=== PATIENT | female | born 1965 | race Two or more races ===

== ENCOUNTER → 2017-01-27 | Outpatient (CLI) | payer MEDICAID ==
[~2017-01-27] MED LIST: LEVO750T26 PO; METR500T8 PO; ONDA4TAB10 PO; OXYC5TAB3 PO
== END | disposition home or self-care (01) ==
LOC: RAD 15:59
PROVIDERS: ATTEND Nurse Practitioner
DX: M77.31 Calcaneal spur, right foot (principal); M79.672 Pain in left foot